=== PATIENT | male | born 1995 | race Caucasian/White ===

== ENCOUNTER 2018-03-24 15:53 | Emergency (ER) | payer SELFPAY ==
[~2018-03-24] VITALS: Ht 175.3 cm; Wt 70.3 kg
[2018-03-24] MEDS ORDERED: NKM (16:07)
[2018-03-24 16:18] VITALS: BP 121/78
[2018-03-24] MEDS ORDERED: Ketorolac 30mg Inj IV ONE (16:30)
[2018-03-24] MEDS ORDERED: Bicillin LA 1.2MMU/2ML SYR IM ONE (16:30)
--- NOTE | 2018-03-24 16:32 | Emergency Room Report ---
History of Present Illness General Chief Complaint: Overdose Source: Patient Present Illness HPI Patient is a 22-year-old male presented after increased left lower dental pain. Patient had recently been having increased the discomfort for approximately 10 days. Patient reports having a prior dental infection. He reports having increased sharp pain. He denies any fever. He reports taking multiple dosages of ibuprofen as well as aspirin. He reports having taken some tramadol as well. The patient had not been having a difficulty swallowing. He had gradual onset of symptoms. Allergies: Coded Allergies: No Known Allergies (Unverified , 03/24/18) Patient History Past Medical History: see triage record Reviewed Nursing Documentation: PMH: Agreed; PSxH: Agreed Nursing Documentation-PMH Past Medical History: No Stated History Hx Asthma: Yes Review of Systems All Other Systems: negative except mentioned in HPI Physical Exam Vital Signs Date Time Temp Pulse Resp B/P (MAP) Pulse Ox O2 Delivery O2 Flow Rate FiO2 03/24/18 15:56 98.1 103 20 115/73 97 Room Air Sp02 EP Interpretation: reviewed, normal General Appearance: normal inspection, well appearing, no apparent distress, alert Head: atraumatic ENT: normal ENT inspection, hearing grossly normal, normal voice, other - left side dental infection, no trismus, no submandibular swelling noted Neck: normal inspection, full range of motion, supple, no bony tend Respiratory: normal inspection, lungs clear, normal breath sounds, no respiratory distress, no retraction, no wheezing Cardiovascular #1: regular rate, rhythm, no edema Gastrointestinal: normal inspection, normal bowel sounds, non tender, soft, no guarding, no hernia Genitourinary: no CVA tenderness Musculoskeletal: normal inspection, back normal, normal range of motion Neurologic: normal inspection, alert, responsive, speech normal Psychiatric: normal inspection, judgement/insight normal, mood/affect normal Skin: normal inspection, normal color, no rash Medical Decision Making Diagnostic Impression: Primary Impression: Dental infection ER Course Patient presented for dental pain. Differential diagnosis included but was not limited to trigeminal neuralgia, dental abscess, dry socket, osteomyelitis, nerve injury. Because of complexity of patient's case laboratory testing and imaging studies were ordered.The patient was noted to have normal renal function as well as nontoxic levels of aspirin and acetaminophen.Patient was given Bicillin for dental infection.The patient was advised that he needed to seek definitive management with oral surgery The patient is advised to follow up with dentist in 1-2 days. Patient is advised to return if any worsening condition or if any changes in status that are concerning. Labs Test 03/24/18 16:40 03/24/18 17:42 White Blood Count 7.8 K/UL (4.8-10.8) Red Blood Count 5.28 M/UL (4.70-6.10) Hemoglobin 15.6 G/DL (14.2-18.0) Hematocrit 45.7 % (42.0-52.0) Mean Corpuscular Volume 87 FL (80-99) Mean Corpuscular Hemoglobin 29.5 PG (27.0-31.0) Mean Corpuscular Hemoglobin Concent 34.0 G/DL (32.0-36.0) Red Cell Distribution Width 11.5 % (11.6-14.8) Platelet Count 175 K/UL (150-450) Mean Platelet Volume 8.1 FL (6.5-10.1) Neutrophils (%) (Auto) 56.4 % (45.0-75.0) Lymphocytes (%) (Auto) 30.7 % (20.0-45.0) Monocytes (%) (Auto) 8.3 % (1.0-10.0) Eosinophils (%) (Auto) 3.7 % (0.0-3.0) Basophils (%) (Auto) 1.0 % (0.0-2.0) Sodium Level 139 MMOL/L (136-145) Potassium Level 4.0 MMOL/L (3.5-5.1) Chloride Level 106 MMOL/L (98-107) Carbon Dioxide Level 20 MMOL/L (21-32) Anion Gap 13 mmol/L (5-15) Blood Urea Nitrogen 25 mg/dL (7-18) Creatinine 1.1 MG/DL (0.55-1.30) Estimat Glomerular Filtration Rate > 60 mL/min (>60) Glucose Level 81 MG/DL (74-106) Calcium Level 9.2 MG/DL (8.5-10.1) Total Bilirubin 0.3 MG/DL (0.2-1.0) Aspartate Amino Transf (AST/SGOT) 19 U/L (15-37) Alanine Aminotransferase (ALT/SGPT) 21 U/L (12-78) Alkaline Phosphatase 79 U/L (46-116) Total Protein 8.0 G/DL (6.4-8.2) Albumin 3.8 G/DL (3.4-5.0) Globulin 4.2 g/dL Albumin/Globulin Ratio 0.9 (1.0-2.7) Salicylates Level 20.1 ug/mL (2.8-20) Acetaminophen Level < 2 MCG/ML (10-30) Serum Alcohol < 3 mg/dL Urine Opiates Screen Negative (NEGATIVE) Urine Barbiturates Screen Negative (NEGATIVE) Phencyclidine (PCP) Screen Negative (NEGATIVE) Urine Amphetamines Screen Negative (NEGATIVE) Urine Benzodiazepines Screen Negative (NEGATIVE) Urine Cocaine Screen Negative (NEGATIVE) Urine Marijuana (THC) Screen Negative (NEGATIVE) Last Vital Signs Date Time Temp Pulse Resp B/P (MAP) Pulse Ox O2 Delivery O2 Flow Rate FiO2 03/24/18 16:18 98.4 92 14 121/78 96 Room Air Status: improved Disposition: HOME, SELF-CARE Condition: Stable Scripts Ibuprofen* (MOTRIN*) 600 Mg Tablet 600 MG ORAL Q8H PRN for For Pain, #30 TAB 0 Refills Prov: Luke Trivedi MD 03/24/18 Lidocaine HCl 2% Viscous (Lidocaine HCl 2% Viscous) 100 Ml Solution 15 ML ORAL QID, #120 ML Prov: Luke Trivedi MD 03/24/18 Luke Trivedi MD Mar 24, 2018 16:32
[2018-03-24 17:10] LABS: ANION GAP 13 mmol/L (5-15); BLOOD UREA NITROGEN 25 mg/dL (7-18); CALCIUM 9.2 MG/DL (8.5-10.1); CARBON DIOXIDE 20 MMOL/L (21-32); CHLORIDE 106 MMOL/L (98-107); CREATININE 1.1 MG/DL (0.55-1.30); SODIUM 139 MMOL/L (136-145)
[2018-03-24 17:13] LABS: EOSINOPHILS % (AUTO) 3.7 % (0.0-3.0); HEMATOCRIT 45.7 % (42.0-52.0); HEMOGLOBIN 15.6 G/DL (14.2-18.0); LYMPHOCYTES % (AUTO) 30.7 % (20.0-45.0); MEAN CORPUSCULAR VOLUME 87 FL (80-99); MONOCYTES % (AUTO) 8.3 % (1.0-10.0); NEUTROPHILS % (AUTO) 56.4 % (45.0-75.0); PLATELET COUNT 175 K/UL (150-450); RED BLOOD COUNT 5.28 M/UL (4.70-6.10); RED CELL DISTRIBUTION WIDTH 11.5 % (11.6-14.8); WHITE BLOOD COUNT 7.8 K/UL (4.8-10.8)
[2018-03-24 17:15] LABS: ALANINE AMINOTRANSFERASE 21 U/L (12-78); ALBUMIN 3.8 G/DL (3.4-5.0); ALBUMIN/GLOBULIN RATIO 0.9 (1.0-2.7); ALKALINE PHOSPHATASE 79 U/L (46-116); ASPARTATE AMINO TRANSFERASE 19 U/L (15-37); BILIRUBIN,TOTAL 0.3 MG/DL (0.2-1.0)
[2018-03-24] MEDS ORDERED: LIDOCAINE VISC100 ML ORAL (18:29)
[2018-03-24] MEDS ORDERED: IBUPROFEN600 MG ORAL (18:29)
[2018-03-24] MEDS ORDERED: Lidocaine 2% Visc 15ml soln ORAL ONE (18:30)
[2018-03-24 19:29] VITALS: BP 122/74
== END 2018-03-24 18:33 | disposition home or self-care (01) ==
LOC: EMR 16:22
DX: K04.7 Periapical abscess without sinus (principal); J45.909 Unspecified asthma, uncomplicated
CPT/HCPCS: 36415; 80053; 80307; 85025; 96372; 96374; 99284; G0480; J0570; J1885; 80329; J0561